=== PATIENT | female | born 1935 | race Caucasian/White ===

== ENCOUNTER → 2016-10-31 | Outpatient (CLI) | payer OTHER ==
[2016-05-10 13:59] VITALS: BP 105/59
[~2016-10-31] MED LIST: ADULT LOW DOSE81 MG PO; ARICEPT5 MG PO; ATROVENT NASAL15 ML NS; CALCIUM500 MG PO; CEFUROXIME AXE250 MG PO; CITALOPRAM40 MG PO; COL-RITE100 M1 PO; DONEPEZIL HYDRO10 MG PO; GOOD SENSE ASPI81 M1 PO; KETOROLAC10 MG PO; KLONOPIN 0.5MG0.5 MG PO; LIDODERM 5% PATC1 EA TP; MEGESTROL ACETA40 MG PO; MELATONIN3 M1 PO; MIRALAX17 GM PO; MIRALAX17 GM/DOSE PO; MORPHINE; NASONEX0.05 MG/AC NS; NEXIUM40 MG PO; NORCO 325 MG-51 TAB PO; OSCAL 500MG/VI500 MG PO; SINGULAIR10 MG PO; SYMBICORT1 AE3 IH; ULTRAM 50MG TAB50 MG PO; XOPENEX1.25 MG/3 IH; ZYRTEC10 MG PO; [UNRECOGNIZED DRUG - OTHER] PO
== END ==
LOC: LAB 11:48
DX: I25.10 Atherosclerotic heart disease of native coronary artery without angina pectoris (principal); M85.89 Other specified disorders of bone density and structure, multiple sites; I27.2 Other secondary pulmonary hypertension

== ENCOUNTER → 2017-03-27 | Outpatient (CLI) | payer OTHER ==
[2016-05-10 13:59] VITALS: BP 105/59
== END ==
LOC: LAB 15:05
DX: N39.0 Urinary tract infection, site not specified (principal)

== ENCOUNTER → 2017-06-09 | Outpatient (CLI) | payer OTHER ==
[2016-05-10 13:59] VITALS: BP 105/59
[2017-06-09 16:47] LABS: EOS # 0.2 (0.04-0.40); EOS % 1.4 % (1.0-5.0); HEMATOCRIT 38.3 % (37.0-47.0); HEMOGLOBIN 12.1 g/dL (12.5-16.0); LYMPH# 2.4 (1.50-4.00); MEAN CELL VOLUME 94 fl (78-100); MEAN CORPUSCULAR HEMOGLOBIN 30 pg (27-31); MEAN CORPUSCULAR HGB CONC 32 g/dL (33-37); MEAN PLATELET VOLUME 10.2 fl (7.4-10.4); MONO # 0.7 (0.20-0.80); NEU # 7.7 (1.40-6.50); PLATELET COUNT 247 K/mm3 (130-400); RED BLOOD COUNT 4.06 M/mm3 (4.10-5.30); RED CELL DISTRIBUTION WIDTH 14.1 % (11.5-14.5)
[2017-06-09 20:06] LABS: ERYTHROCYTE SEDIMENTATION RATE 39 mm/hr (0-30)
[2017-06-09 20:37] LABS: ALBUMIN 3.9 g/dL (3.5-5.0); BUN/CREATININE RATIO 30.9 (6.0-26.0); CALCIUM 10.5 mg/dL (8.4-10.2); POTASSIUM 5.3 mmol/L (3.6-5.0); TOTAL BILIRUBIN 0.7 mg/dL (0.2-1.3); TOTAL PROTEIN 7.7 g/dL (6.3-8.2)
== END ==
LOC: LAB 16:29
PROVIDERS: Medical Genetics Clinical Genetics (M.D.)
DX: I10 Essential (primary) hypertension (principal)